=== PATIENT | male | born 1965 | race Two or more races ===

== ENCOUNTER → 2024-09-07 | Outpatient (CLI) | payer BC, OTHER, SELFPAY ==
[2024-09-07 08:32] LABS: Basophils % (Auto) 0 % (0-2.5); Eosinophils # (Auto) 0.2 Thou/mm3 (0.0-0.5); Eosinophils % (Auto) 3 % (0-10); Hematocrit 42.1 % (41.0-53.0); Hemoglobin 14.9 g/dL (13.5-16.0); Immature Granulocytes % (Auto) 0 % (0-0); Immature Granulocytes Auto 0.01 Thou/mm3 (0.00-0.00); Lymphocytes % (Auto) 36 % (10-50); Mean Corpuscular HGB Conc 35.4 g/dl (31.0-37.0); Mean Corpuscular Hemoglobin 31.3 pg (25.0-35.0); Mean Corpuscular Volume 88 fL (80-100); Monocytes # (Auto) 0.5 Thou/mm3 (0.0-0.8); Monocytes % (Auto) 9 % (0-12); Neutrophils % (Auto) 52 % (37-80); Nucleated Red Blood Cell % 0 /100 WBC (0); Platelet Count 259 Thou/mm3 (140-440); RDW Standard Deviation 39.8 fL (35.1-43.9); Red Blood Count 4.76 Miln/mm3 (4.50-5.90); White Blood Count 5.7 Thou/mm3 (3.8-10.6)
[2024-09-07 08:56] LABS: Alanine Aminotransferase 49 U/L (10-49); Albumin, Serum 4.2 gm/dL (3.5-5.0); Albumin/Globulin Ratio 1.9 (1.2-2.2); Alkaline Phosphatase 62 U/L (46-116); Anion Gap 6 (7-16); Aspartate Amino Transferase 27 U/L (0-34); BUN/Creatinine Ratio 15 Ratio (12-20); Bilirubin,Total 0.9 mg/dL (0.3-1.2); Blood Urea Nitrogen 16 mg/dL (9-23); Calcium 9.3 mg/dL (8.3-10.6); Calcium (Corrected) 9.3 mg/dL (8.5-10.1); Carbon Dioxide 28.8 mMol/L (20.0-31.0); Cardiac Risk Estimate 3.2 RATIO (4.0-6.7); Chloride 104 mMol/L (98-107); Cholesterol 188 mg/dL (132-200); Creatinine (Component) 1.1 mg/dL (0.6-1.3); Globulin 2.2 gm/dL (2.3-3.5); Glucose 95 mg/dL (74-106); HDL Cholesterol 59 mg/dL (40-60); LDL Cholesterol,Calculated 110 mg/dL (0-130); Osmolality,Calculated 278 (275-295); Potassium 4.4 mMol/L (3.4-5.1); Sodium 139 mMol/L (136-145); Total Protein 6.4 gm/dL (5.7-8.2); Triglycerides 97 mg/dL (30-150); eGFR > 60 See Note
[2024-09-07 09:03] LABS: Collection Type, Urine Clean Catch
[2024-09-07 09:38] LABS: Bilirubin,Urine Negative (Negative); Blood,Urine Negative (Negative); Clarity,Urine Clear (Clear/Hazy); Color,Urine Lt-Yellow (Lt Yel-Yel); Glucose, Urine Negative (Negative); Ketones,Urine Negative (Negative); Leukocyte Esterase,Urine Negative (Negative); Nitrite,Urine Negative (Negative); PH,Urine 6.5 (5.0-7.0); Protein,Urine Negative (Neg - Trace); RBC,Urine 6 /hpf (0-3); Specific Gravity,Urine 1.012 (1.001-1.035); Squamous Epithelial Cell,Urine < 1 /hpf (0-5); Urobilinogen,Urine Negative mg/dL (0.0-1.0); WBC,Urine 1 /hpf (0-5)
== END | disposition home or self-care (01) ==
LOC: COPL 07:55
PROVIDERS: PCP Family Medicine; Referring Provider Family Medicine; Visit Provider Family Medicine
DX: Z00.00 Encounter for general adult medical examination without abnormal findings (principal); E78.2 Mixed hyperlipidemia
CPT/HCPCS: 36415; 80053; 80061; 81001; 85025

== ENCOUNTER → 2025-03-19 | Outpatient (CLI) | payer BC, OTHER, SELFPAY ==
--- NOTE | 2025-03-19 | XR_ITS ---
Examination: Lumbar spine 3 views Technique one AP lateral coned lateral lower lumbar spine 3 views Date and time: March 19 thousand 25 0832 hours INDICATIONS: Lower back pain 20 years. FINDINGS: Adequate alignment lumbar vertebral bodies Mild to moderate diffuse lumbar disc narrowing most prominent at L5-S1 Moderate lumbar spondylosis No lumbar fracture 15 mm calcific density overlying the left kidney Moderate bilateral hip osteoarthritis IMPRESSION: Mild to moderate diffuse lumbar degenerative disc disease Recommend renal sonography to exclude 15 mm left renal calculus
[2025-03-19 09:57] LABS: Alanine Aminotransferase 21 U/L (10-49); Albumin, Serum 4.4 gm/dL (3.5-5.0); Albumin/Globulin Ratio 1.8 (1.2-2.2); Alkaline Phosphatase 65 U/L (46-116); Anion Gap 8 (7-16); Aspartate Amino Transferase 20 U/L (0-34); BUN/Creatinine Ratio 12 Ratio (12-20); Bilirubin,Total 0.8 mg/dL (0.3-1.2); Blood Urea Nitrogen 13 mg/dL (9-23); Calcium 9.7 mg/dL (8.3-10.6); Calcium (Corrected) 9.7 mg/dL (8.5-10.1); Carbon Dioxide 31.4 mMol/L (20.0-31.0); Cardiac Risk Estimate 3.3 RATIO (4.0-6.7); Chloride 104 mMol/L (98-107); Cholesterol 208 mg/dL (132-200); Creatinine (Component) 1.1 mg/dL (0.6-1.3); Globulin 2.4 gm/dL (2.3-3.5); Glucose 99 mg/dL (74-106); HDL Cholesterol 64 mg/dL (40-60); LDL Cholesterol,Calculated 124 mg/dL (0-130); Osmolality,Calculated 285 (275-295); Potassium 4.4 mMol/L (3.4-5.1); Sodium 143 mMol/L (136-145); Total Protein 6.8 gm/dL (5.7-8.2); Triglycerides 100 mg/dL (30-150); eGFR > 60 See Note
== END | disposition home or self-care (01) ==
LOC: CDIM 07:50 → COPL 08:38
PROVIDERS: PCP Family Medicine; Referring Provider Family Medicine; Visit Provider Orthopaedic Surgery
DX: M51.369 Other intervertebral disc degeneration, lumbar region without mention of lumbar back pain or lower extremity pain (principal); R03.0 Elevated blood-pressure reading, without diagnosis of hypertension; E78.2 Mixed hyperlipidemia
CPT/HCPCS: 36415; 72100; 80053; 80061

== ENCOUNTER → 2025-04-19 | Outpatient (CLI) | payer BC, OTHER, SELFPAY ==
--- NOTE | 2025-04-19 08:23 | XR_ITS ---
Examination: Knee, right, 3 views Technique: Knee AP, lateral, oblique 3 views Date and time of exam: 04/19/2025, 8:34 a.m. Indication: Right knee pain for 2 months. COMPARISON: None FINDINGS: Mild tricompartmental joint space narrowing is visualized. There is suggested mild hypertrophy/spurring at the tibial eminences, more so on the medial side. Otherwise, no evidence for subchondral sclerosis, cystic changes or larger marginal osteophytes. No apparent joint effusion. No fracture or subluxation. Regional soft tissues are grossly unremarkable. IMPRESSION: Mild right knee osteoarthrosis with otherwise no acute osseous abnormality.
== END | disposition home or self-care (01) ==
LOC: CDIM 08:15
PROVIDERS: PCP Family Medicine; Referring Provider Family Medicine; Visit Provider Family Medicine
DX: M17.11 Unilateral primary osteoarthritis, right knee (principal)
CPT/HCPCS: 73562

== ENCOUNTER 2025-06-12 09:18 | Outpatient (AMB) | payer BC, OTHER, SELFPAY ==
--- NOTE | 2025-06-12 09:37 | ORTHONT_ITS ---
Vital signs 06/12/25 09:38 Weight 83.036 kg Weight Measurement Method Standing Scale BP 147/92 H Blood Pressure Source Automatic Cuff Blood Pressure Location Right Upper Arm Position Sitting Respiration 16 Pulse 64 Pulse Source Monitor Temp 97.7 F Temp Source Temporal Artery Scan Pulse Oximetry (%) 97 Oxygen Delivery Method Room Air Med/Allergies Allergies & Medications Allergies NKA* Allergy (Uncoded 06/12/25 09:40) Medication Reconciliation Fluticasone Propionate NASAL * (FLONASE *) 1 spry Nasally BID #0 spry 11/14/13 [History Confirmed 06/12/25] Sulfamethoxazole/Trimethoprim (Septra DS) 1 tab PO BID ##0 11/14/13 [History Confirmed 06/12/25] atorvastatin 10 mg tablet (Lipitor) 10 mg PO HS #0 tabs 11/14/13 [History Confirmed 06/12/25] dexlansoprazole 60 mg capsule,biphase delayed release (Dexilant) 60 mg PO QDAY ##0 11/14/13 [History Confirmed 06/12/25] meloxicam 7.5 mg tablet 7.5 mg PO QDAY #45 tabs 06/12/25 [Rx] Exam Exam Patient is in no acute distress and is cooperative with the examination today. Breathing is nonlabored. In no respiratory distress. Bilateral extremities were evaluated and demonstrates sensation intact to light touch. Palpable pedal pulses are present. No significant edema is present. Bilateral hips were examined. The patient has no pain with log roll of the hips. Internal rotation to 30 degrees and external rotation to 30 degrees is painless. Negative FADIR. The left knee was examined. The left knee is in varus alignment. Range of motion from 0-115 degrees. Knee is stable to varus and valgus as well as AP translation with <5mm. Patient has a negative McMurrays. There is no pain with patellofemoral compression and no crepitus noted. The knee is tender to palpation medially. The right knee was also examined. The right knee is in varus alignment. Range of motion from 0-120 degrees. Knee is stable to varus and valgus as well as AP translation with <5mm. Patient has a negative McMurrays. There is no pain with patellofemoral compression and no crepitus noted. The knee is tender to palpation medially. I viewed nonweightbearing x-rays of the right knee. This demonstrates mild to moderate arthritis in the medial compartment Assessment and Plan Problem List (1) Degenerative arthritis of knee, bilateral: Status: Acute Plan: Patient is a pleasant 59-year-old male with bilateral knee pain and medial tenderness. I do suspect he has mild to moderate arthritis. I will need weightbearing x-rays. I also sent him a prescription for meloxicam Office Procedures GNS Level of Care Nursing/Assessment Patient Status: Established Patient Nursing Assessment/Reassesment: Medication Reconciliation, Update PMH in EMR and Vital Signs Coordination of Care: Complex Care and Chronic Disease 1-5, Education Complex Pt/Fam, Consent,records obtained, informed consent, Results/Orders obtained and Staff clarify orders Established Patient Charge Established Patient Point Assignment: 95 Established Patient Point Charge: Level 3 (80-115) MA Intake Visit Data Collection New Patient or Established: Established Patient (seen at [facility] within 3 years) Reason for Visit:: RIGHT KNEE PAIN Seen by Clinical Staff ONLY (RN/MA): No Verbal consent obtained for Telemed visit?: No 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 Has been ongoing for about 6 months. He is an avid golfer and reports that there is pain when he is performing activities. He has no pain in either wrist yet. He has not tried much treatment except for Aleve Personal History Occupation: PUBLIC WORKER Red flag PMH: none BMI Counceling provided: No Pain Pain level (0-10): 2 Pain duration: COMES AND GOES Pain quality: dull and aching Associated signs & symptoms: none Ambulatory data Ambulatory device: none Treatments Improvement with previous injections: No Improvement with PT: No Improvement with NSAIDS: no (ALIEVE) Review of Systems Review of Systems: All systems negative unless otherwise noted in HPI.
[2025-06-12 09:38] VITALS: BP 147/92; PULSE 64; RESP 16; TEMP 36.5; O2SAT 97
--- NOTE | 2025-06-12 10:19 | XR_ITS ---
EXAMINATION: Bilateral knees 2 views Bilateral knee left lateral knee 2 views Bilateral [place] single view TECHNIQUE: Bilateral AP knees standing single view, bilateral PA knees standing single view flexion Standing right lateral knee left lateral knee 2 views Bilateral Axuni single view Date and time: June 12, 2025, 1031 hours INDICATIONS: Bilateral knee pain beginning 1 year ago. FINDINGS: Bilateral mild to moderate tricompartment osteoarthritis No fractures No patellar dislocations IMPRESSION: Bilateral mild to moderate tricompartment osteoarthritis
== END 2025-06-12 10:27 | disposition home or self-care (01) ==
PROVIDERS: PCP Family Medicine; Referring Provider Family Medicine; Supervising Provider Orthopaedic Surgery Adult Reconstructive Orthopaedic Surgery; Visit Provider Orthopaedic Surgery Adult Reconstructive Orthopaedic Surgery
DX: M17.0 Bilateral primary osteoarthritis of knee (principal); M25.562 Pain in left knee; M25.561 Pain in right knee
CPT/HCPCS: 73564; 99213; G0463